=== PATIENT | female | born 1950 | race Caucasian/White ===

== ENCOUNTER 2018-07-11 06:23 | Day surgery (SDC) | payer MEDICARE, OTHER ==
[2018-07-11] MEDS ORDERED: morphine SULFATE/PF (10 MG/10 ML) INJ (11:38)
[2018-07-11] MEDS ORDERED: MIDAZOLAM 1 MG/ML 2 ML INJ (12:04)
[2018-07-11] MEDS: EPINEPHrine 1 MG/ML 30 ML INJ IRR (12:30)
[2018-07-11] MEDS: morphine SULFATE/PF (10 MG/10 ML) INJ (12:30)
[2018-07-11] MEDS ORDERED: FENTAnyl 50 MCG/ML VIAL (12:35)
[2018-07-11] MEDS ORDERED: PROPOFOL 20 ML (12:55)
[2018-07-11] MEDS ORDERED: CEFAZOLIN 1 GM INJ (12:55)
[2018-07-11] MEDS ORDERED: LIDOCAINE 2% (SDV) 5 ML INJ (12:55)
[2018-07-11] MEDS ORDERED: ONDANSETRON 4 MG INJ (12:56)
[2018-07-11] MEDS: FENTAnyl 50 MCG/ML VIAL IV (13:29)
[2018-07-11] MEDS ORDERED: HYDROCODONE/APAP (5/325) TAB PO (13:30)
[2018-07-11] MEDS ORDERED: ONDANSETRON 4 MG INJ IV (13:30)
[2018-07-11] MEDS ORDERED: LABETALOL HCL 20MG INJ IV (13:30)
[2018-07-11] MEDS ORDERED: MEPERIDINE 25 MG INJ IV (13:30)
[2018-07-11] MEDS ORDERED: DIPHENHYDRAMINE 50 MG INJ IV (13:30)
[2018-07-11] MEDS ORDERED: HYDROmorphONE 1 MG/5 ML IV SYRINGE IV ×2 (13:30)
[2018-07-11] MEDS ORDERED: METOCLOPRAMIDE 10 MG INJ IV (13:30)
== END 2018-07-11 14:45 | disposition home or self-care (01) ==
LOC: SDS 06:23
DX: S83.241A Other tear of medial meniscus, current injury, right knee, initial encounter (principal); S83.281A Other tear of lateral meniscus, current injury, right knee, initial encounter; M65.9 Synovitis and tenosynovitis, unspecified; E78.5 Hyperlipidemia, unspecified; E66.01 Morbid (severe) obesity due to excess calories; X58.XXXA Exposure to other specified factors, initial encounter; Y92.89 Other specified places as the place of occurrence of the external cause; Y93.89 Activity, other specified; Y99.8 Other external cause status
CPT/HCPCS: 29880